=== PATIENT | female | born 1985 | race Caucasian/White ===

== ENCOUNTER 2018-01-29 13:48 | Emergency (ER) | payer OTHER ==
[2018-01-29] MEDS ORDERED: ACETAMINOPHEN TAB 500 MG TAB PO STA (14:52)
[2018-01-29 15:26] LABS: Basophils % (A) 0 %; Eosinophils # (A) 0.2 k/uL (0-0.7); Eosinophils % (A) 3 %; HCT 42.1 % (34.0-46.0); HGB 13.8 gm/dL (11.4-16.0); Lymphocytes # (A) 2.5 k/uL (1.0-4.8); Lymphocytes % (A) 48 %; MCH 29.2 pg (25.0-35.0); MCHC 32.8 g/dL (31.0-37.0); Mean Platelet Volume 6.9; Monocytes # (A) 0.3 k/uL (0-1.0); Monocytes % (A) 6 %; Neutrophils # (A) 2.2 k/uL (1.3-7.7); Neutrophils % (A) 42 %; Platelet Count 255 k/uL (150-450); RBC 4.73 m/uL (3.80-5.40); RDW 13.7 % (11.5-15.5); WBC 5.2 k/uL (3.8-10.6)
[2018-01-29 15:33] LABS: Anion Gap 10 mmol/L; Blood Urea Nitrogen 12 mg/dL (7-17); Calcium 10.1 mg/dL (8.4-10.2); Carbon Dioxide 23 mmol/L (22-30); Chloride 109 mmol/L (98-107); Glucose 86 mg/dL (74-99); Potassium 4.2 mmol/L (3.5-5.1); Sodium 142 mmol/L (137-145)
[2018-01-29 15:36] LABS: Appearance,Urine Cloudy (Clear); Bacteria,Urine Occasional /hpf; Bilirubin,Urine Negative (Negative); Blood,Urine Negative (Negative); Color,Urine Light Yellow; Glucose,Urine (UA) Negative (Negative); Hyaline Casts,Urine 2 /lpf (0-2); Ketones,Urine Negative (Negative); Leukocyte Esterase,Urine Negative (Negative); Nitrite,Urine Negative (Negative); Protein,Urine Negative (Negative); RBC,Urine <1 /hpf (0-5); Specific Gravity,Urine 1.005 (1.001-1.035); Squamous Epithelial Cell,Urine 11 /hpf (0-4); Urobilinogen,Urine <2.0 mg/dL (<2.0); WBC,Urine 2 /hpf (0-5)
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
[2018-01-29 15:47] LABS: Urn Cannabinoid Scrn Detected (NotDetected)
[2018-01-29 15:48] LABS: Amphetamine Screen,Urine Not Detected (NotDetected); Barbiturate Screen,Urine Not Detected (NotDetected); Benzodiazepines Screen,Urine Not Detected (NotDetected); Cocaine Screen,Urine Not Detected (NotDetected); Methadone Screen, Urine Not Detected (NotDetected); Opiate Screen,Urine Not Detected (NotDetected); Oxycodone Screen, Urine Not Detected (NotDetected); Phencyclidine Screen,Urine Not Detected (NotDetected); Tricyclic Antidepressant,Urine Not Detected (NotDetected)
--- NOTE | 2018-01-29 15:48 | US ---
EXAMINATION TYPE: US venous doppler duplex LE LT DATE OF EXAM: 01/29/2018 3:36 PM COMPARISON: NONE CLINICAL HISTORY: Pain. discoloration and mild swelling on anterior left awtts SIDE PERFORMED: Left TECHNIQUE: The lower extremity deep venous system is examined utilizing real time linear array sonog carmelita with graded compression, doppler sonography and color-flow sonography. VESSELS IMAGED: External Iliac Vein (EIV) Common Femoral Vein Deep Femoral Vein Greater Saphenous Vein * Femoral Vein Popliteal Vein Small Saphenous Vein * Proximal Calf Veins (* superficial vessels) Left Leg: Appears negative for DVT, scanned anterior left watts and no obvious abnormality seen. Grayscale, color doppler, spectral doppler imaging performed of the deep veins of the left lower extr emity. There is normal flow, compressibility, vascular waveforms. Towards end of the exam anterior watts shows mild diffuse subcutaneous edema without suspicious focal fluid collection or mass. IMPRESSION: No ultrasound evidence for acute DVT in the left lower extremity.
[2018-01-29] MEDS ORDERED: AZITHROMYCIN 500 MG TAB PO STA (16:21)
[2018-01-29] MEDS ORDERED: metroNIDAZOLE 500 MG TAB PO STA (16:21)
[2018-01-29] MEDS ORDERED: cefTRIAXone 250 MG VIAL IM STA (16:21)
[2018-01-29] MEDS ORDERED: FLUCONAZOLE 150 MG TAB PO STA (16:31)
[2018-01-29 17:18] VITALS: BP 102/56; PULSE 58; RESP 16; TEMP 96.8
== END 2018-01-29 17:17 | disposition home or self-care (01) ==
LOC: EC 13:48
DX: N64.52 Nipple discharge (principal); L30.9 Dermatitis, unspecified; M79.662 Pain in left lower leg; F17.200 Nicotine dependence, unspecified, uncomplicated; Z87.42 Personal history of other diseases of the female genital tract; Z90.710 Acquired absence of both cervix and uterus; Z88.1 Allergy status to other antibiotic agents; Z88.2 Allergy status to sulfonamides
CPT/HCPCS: 36415; 80048; 85025; 81001; 81025; 84146; 80306; 87070; 87205; 93971; 99284; 96372; J0696

== ENCOUNTER 2018-02-14 18:01 | Emergency (ER) | payer OTHER ==
[2018-02-14 20:07] LABS: Basophils # (A) 0.1 k/uL (0-0.2); Basophils % (A) 1 %; Eosinophils # (A) 0.1 k/uL (0-0.7); Eosinophils % (A) 1 %; HCT 41.9 % (34.0-46.0); HGB 13.9 gm/dL (11.4-16.0); Lymphocytes # (A) 2.6 k/uL (1.0-4.8); Lymphocytes % (A) 31 %; MCH 29.4 pg (25.0-35.0); MCHC 33.1 g/dL (31.0-37.0); MCV 88.6 fL (80.0-100.0); Mean Platelet Volume 7.1; Monocytes # (A) 0.3 k/uL (0-1.0); Monocytes % (A) 4 %; Neutrophils # (A) 5.3 k/uL (1.3-7.7); Neutrophils % (A) 63 %; Platelet Count 239 k/uL (150-450); RBC 4.72 m/uL (3.80-5.40); RDW 13.2 % (11.5-15.5); WBC 8.4 k/uL (3.8-10.6)
[2018-02-14 20:18] LABS: Anion Gap 9 mmol/L; Blood Urea Nitrogen 18 mg/dL (7-17); Calcium 10.1 mg/dL (8.4-10.2); Carbon Dioxide 28 mmol/L (22-30); Chloride 105 mmol/L (98-107); Glucose 115 mg/dL (74-99); Magnesium 2.1 mg/dL (1.6-2.3); Potassium 3.9 mmol/L (3.5-5.1); Sodium 142 mmol/L (137-145)
[2018-02-14 20:53] LABS: Appearance,Urine Clear (Clear); Bilirubin,Urine Negative (Negative); Blood,Urine Negative (Negative); Color,Urine Light Yellow; Glucose,Urine (UA) Negative (Negative); Ketones,Urine Negative (Negative); Leukocyte Esterase,Urine Negative (Negative); Nitrite,Urine Negative (Negative); PH, Urine 6.5 (5.0-8.0); Protein,Urine Negative (Negative); Specific Gravity,Urine 1.008 (1.001-1.035); Urobilinogen,Urine <2.0 mg/dL (<2.0)
[2018-02-14 21:19] VITALS: RESP 18
--- NOTE | 2018-02-14 21:46 | ED ---
General Adult HPI - General Chief complaint: Weakness Stated complaint: weakness Source: patient Mode of arrival: wheelchair Limitations: no limitations - History of Present Illness Initial comments: Dictation was produced using [employer] dictation software. please excuse any grammatical, word or spelling errors. Chief Complaint: 31-year-old female past medical history of seizure disorder neuropathy presents with total body pain. History of Present Illness: Patient is a 31-year-old female presents with total body pain. Patient states she has past medical history of seizure and neuropathy. Patient states she takes 100 mg of gabapentin 3 times a day and 100 mg of Lamictal once a day. Patient states she just moved from [place] 2 weeks ago. She states she has not had a chance to refill her medications. Patient denies any constitutional symptoms. The ROS documented in this emergency department record has been reviewed and confirmed by me. Those systems with pertinent positive or negative responses have been documented in the HPI. All other systems are other negative and/or noncontributory. - Related Data Previous Rx's Medication Instructions Recorded Gabapentin 800 mg PO TID #12 tab 02/14/18 lamoTRIgine [LaMICtal] 100 mg PO BID #10 tab 02/14/18 Allergies Allergy/AdvReac Type Severity Reaction Status Date / Time aspirin Allergy Rash/Hives Verified 02/14/18 19:24 ibuprofen [From Motrin IB] Allergy Rash/Hives Verified 02/14/18 19:24 ketorolac [From Toradol] Allergy Rash/Hives Verified 02/14/18 19:24 sulfamethoxazole Allergy Rash/Hives Verified 02/14/18 19:23 [From Bactrim] trimethoprim [From Bactrim] Allergy Rash/Hives Verified 02/14/18 19:23 Review of Systems ROS Statement: Those systems with pertinent positive or pertinent negative responses have been documented in the HPI. ROS Other: All systems not noted in ROS Statement are negative. Past Medical History Past Medical History: Seizure Disorder Additional Past Medical History / Comment(s): endometriosis chronic kidney infections History of Any Multi-Drug Resistant Organisms: None Reported Past Surgical History: Hysterectomy Past Psychological History: No Psychological Hx Reported Smoking Status: Current every day smoker Past Alcohol Use History: Occasional Past Drug Use History: Marijuana General Exam - General Exam Comments Initial Comments: PHYSICAL EXAM: General Impression: Alert and oriented x3, not in acute distress HEENT: Normocephalic atraumatic, extra-ocular movements intact, pupils equal and reactive to light bilaterally, mucous membranes moist. Cardiovascular: Heart regular rate and rhythm, S1&S2 audible, no murmurs, rubs or gallops Chest: Lungs clear to auscultation bilaterally, no rhonchi, no wheeze, no rales Abdomen: Bowel sounds present, abdomen soft, non-tender, non-distended, no organomegaly Musculoskeletal: Pulses present and equal in all extremities, no peripheral edema Motor: Power 5/5 bilaterally, no focal deficits noted Neurological: CN II-XII grossly intact, no focal motor or sensory deficits noted Skin: Intact with no visualized rashes Psych: Normal affect and mood Limitations: no limitations Course Vital Signs 02/14/18 02/14/18 18:33 21:18 Temperature 98.4 F 98.1 F Pulse Rate 84 67 Respiratory 16 18 Rate Blood Pressure 100/68 110/84 O2 Sat by Pulse 99 99 Oximetry Medical Decision Making - Medical Decision Making ED course: 32 Old female presents with whole body pain. Vital signs upon arrival are within acceptable limits. Patient's history of present illness is not suspicious for any life-threatening emergencies. Hemodynamically stable on arrival. Patient is well-appearing. Laboratory evaluation obtained showing no acute processes. Patient is not . Patient's dictations refilled. She is given referral to primary care physician and neurologist. - Lab Data Result diagrams: 02/14/18 19:40 02/14/18 19:40 Lab Results 02/14/18 02/14/18 02/14/18 Range/Units 19:40 19:40 20:37 WBC 8.4 (3.8-10.6) k/uL RBC 4.72 (3.80-5.40) m/uL Hgb 13.9 (11.4-16.0) gm/dL Hct 41.9 (34.0-46.0) % MCV 88.6 (80.0-100.0) fL MCH 29.4 (25.0-35.0) pg MCHC 33.1 (31.0-37.0) g/dL RDW 13.2 (11.5-15.5) % Plt Count 239 (150-450) k/uL Neutrophils % 63 % Lymphocytes % 31 % Monocytes % 4 % Eosinophils % 1 % Basophils % 1 % Neutrophils # 5.3 (1.3-7.7) k/uL Lymphocytes # 2.6 (1.0-4.8) k/uL Monocytes # 0.3 (0-1.0) k/uL Eosinophils # 0.1 (0-0.7) k/uL Basophils # 0.1 (0-0.2) k/uL Sodium 142 (137-145) mmol/L Potassium 3.9 (3.5-5.1) mmol/L Chloride 105 (98-107) mmol/L Carbon Dioxide 28 (22-30) mmol/L Anion Gap 9 mmol/L BUN 18 H (7-17) mg/dL Creatinine 0.73 (0.52-1.04) mg/dL Est GFR (CKD-EPI)AfAm >90 (>60 ml/min/1.73 sqM) Est GFR (CKD-EPI)NonAf >90 (>60 ml/min/1.73 sqM) Glucose 115 H (74-99) mg/dL Calcium 10.1 (8.4-10.2) mg/dL Magnesium 2.1 (1.6-2.3) mg/dL Urine Color Urine Appearance (Clear) Urine pH (5.0-8.0) Ur Specific [place] (1.001-1.035) Urine Protein (Negative) Urine Glucose (UA) (Negative) Urine Ketones (Negative) Urine Blood (Negative) Urine Nitrite (Negative) Urine Bilirubin (Negative) Urine Urobilinogen (<2.0) mg/dL Ur Leukocyte Esterase (Negative) Urine HCG, Qual Not Detected (Not Detectd) 02/14/18 Range/Units 20:37 WBC (3.8-10.6) k/uL RBC (3.80-5.40) m/uL Hgb (11.4-16.0) gm/dL Hct (34.0-46.0) % MCV (80.0-100.0) fL MCH (25.0-35.0) pg MCHC (31.0-37.0) g/dL RDW (11.5-15.5) % Plt Count (150-450) k/uL Neutrophils % % Lymphocytes % % Monocytes % % Eosinophils % % Basophils % % Neutrophils # (1.3-7.7) k/uL Lymphocytes # (1.0-4.8) k/uL Monocytes # (0-1.0) k/uL Eosinophils # (0-0.7) k/uL Basophils # (0-0.2) k/uL Sodium (137-145) mmol/L Potassium (3.5-5.1) mmol/L Chloride (98-107) mmol/L Carbon Dioxide (22-30) mmol/L Anion Gap mmol/L BUN (7-17) mg/dL Creatinine (0.52-1.04) mg/dL Est GFR (CKD-EPI)AfAm (>60 ml/min/1.73 sqM) Est GFR (CKD-EPI)NonAf (>60 ml/min/1.73 sqM) Glucose (74-99) mg/dL Calcium (8.4-10.2) mg/dL Magnesium (1.6-2.3) mg/dL Urine Color Light Yellow Urine Appearance Clear (Clear) Urine pH 6.5 (5.0-8.0) Ur Specific [place] 1.008 (1.001-1.035) Urine Protein Negative (Negative) Urine Glucose (UA) Negative (Negative) Urine Ketones Negative (Negative) Urine Blood Negative (Negative) Urine Nitrite Negative (Negative) Urine Bilirubin Negative (Negative) Urine Urobilinogen <2.0 (<2.0) mg/dL Ur Leukocyte Esterase Negative (Negative) Urine HCG, Qual (Not Detectd) Disposition Clinical Impression: Inadequate pain control Disposition: HOME SELF-CARE Condition: Good Prescriptions: Gabapentin 800 mg PO TID #12 tab lamoTRIgine [LaMICtal] 100 mg PO BID #10 tab Is patient prescribed a controlled substance at d/c from ED?: No Referrals: None,Stated [Primary Care Provider] - 1-2 days Nitza Sanchez MD [REFERRING] - 1-2 days Angela Nguyen MD [STAFF PHYSICIAN] - 1-2 days Time of Disposition: 21:45
[2018-02-14 22:14] VITALS: BP 102/64; PULSE 64; TEMP 97.5
== END 2018-02-14 22:14 | disposition home or self-care (01) ==
LOC: EC 18:01
DX: R53.1 Weakness (principal); R52 Pain, unspecified; G62.9 Polyneuropathy, unspecified; F17.200 Nicotine dependence, unspecified, uncomplicated; Z88.6 Allergy status to analgesic agent; Z88.2 Allergy status to sulfonamides
CPT/HCPCS: 36415; 80048; 81003; 81025; 83735; 85025; 99285

== ENCOUNTER 2018-04-15 10:51 | Emergency (ER) | payer OTHER ==
[2018-04-15 11:07] VITALS: TEMP 97.4
[2018-04-15] MEDS ORDERED: IPRATROPIUM-ALBUTEROL 3 ML NEB INHALATION STA (11:22)
--- NOTE | 2018-04-15 11:31 | ED ---
General Adult HPI - General Chief complaint: Upper Respiratory Infection Stated complaint: Congestion Time Seen by Provider: 04/15/18 11:14 Source: patient, RN notes reviewed Mode of arrival: ambulatory Limitations: no limitations - History of Present Illness Initial comments: Patient is a pleasant 32-year-old female presenting to the emergency department complaints of cough and upper a story symptoms. Symptoms have been occurring over the past 2-3 days. Patient has sinus congestion. Patient does have cough with yellow sputum. Patient does have mild sore throat. Patient does have some suprapubic fullness. Patient states this is chronic and has been present for greater than 1 year. Patient does have some urinary urgency and mild dysuria which she has had previously with urinary tract infections. - Related Data Previous Rx's Medication Instructions Recorded Gabapentin 800 mg PO TID #12 tab 02/14/18 lamoTRIgine [LaMICtal] 100 mg PO BID #10 tab 02/14/18 Albuterol Inhaler [Ventolin Hfa 2 puff INHALATION Q4HR PRN #1 04/15/18 Inhaler] inhaler Azithromycin [Zithromax Z-pack] 250 mg PO DIRECTED #6 tab 04/15/18 Allergies Allergy/AdvReac Type Severity Reaction Status Date / Time aspirin Allergy Rash/Hives Verified 04/15/18 11:07 ibuprofen [From Motrin IB] Allergy Rash/Hives Verified 04/15/18 11:07 ketorolac [From Toradol] Allergy Rash/Hives Verified 04/15/18 11:07 sulfamethoxazole Allergy Rash/Hives Verified 04/15/18 11:07 [From Bactrim] trimethoprim [From Bactrim] Allergy Rash/Hives Verified 04/15/18 11:07 Review of Systems ROS Statement: Those systems with pertinent positive or pertinent negative responses have been documented in the HPI. ROS Other: All systems not noted in ROS Statement are negative. Constitutional: Denies: fever Eyes: Denies: eye pain ENT: Reports: throat pain, congestion. Denies: ear pain Respiratory: Reports: cough. Denies: dyspnea Cardiovascular: Denies: chest pain Endocrine: Denies: fatigue Gastrointestinal: Reports: as per HPI Genitourinary: Reports: urgency, dysuria Musculoskeletal: Denies: back pain Skin: Denies: rash Neurological: Denies: weakness Past Medical History Past Medical History: Seizure Disorder Additional Past Medical History / Comment(s): endometriosis chronic kidney infections History of Any Multi-Drug Resistant Organisms: None Reported Past Surgical History: Hysterectomy Past Psychological History: No Psychological Hx Reported Smoking Status: Current every day smoker Past Alcohol Use History: Occasional Past Drug Use History: Marijuana General Exam Limitations: no limitations General appearance: alert, in no apparent distress Head exam: Present: atraumatic Eye exam: Present: normal appearance, PERRL ENT exam: Present: other (Mild pharyngeal erythema) Neck exam: Present: normal inspection. Absent: tenderness, meningismus Respiratory exam: Present: wheezes (Minimal wheezing) Cardiovascular Exam: Present: regular rate, normal rhythm GI/Abdominal exam: Present: soft. Absent: tenderness Extremities exam: Present: normal inspection. Absent: pedal edema, calf tenderness Back exam: Present: normal inspection Neurological exam: Present: alert Psychiatric exam: Present: normal affect, normal mood Skin exam: Present: normal color Course Vital Signs 04/15/18 04/15/18 04/15/18 11:05 12:01 12:12 Temperature 97.4 F L Pulse Rate 79 80 80 Respiratory 20 Rate Blood Pressure 109/66 O2 Sat by Pulse 99 Oximetry Medical Decision Making - Medical Decision Making Patient reevaluated and resting comfortably in bed. Patient does feel much better following nebulizer. Patient updated on results and plan. Patient requests antibiotics for sinuses. - Lab Data Lab Results 04/15/18 04/15/18 04/15/18 Range/Units 11:43 11:45 11:45 Urine Color Yellow Urine Appearance Clear (Clear) Urine pH 6.0 (5.0-8.0) Ur Specific [place] 1.016 (1.001-1.035) Urine Protein Trace H (Negative) Urine Glucose (UA) Negative (Negative) Urine Ketones Negative (Negative) Urine Blood Negative (Negative) Urine Nitrite Negative (Negative) Urine Bilirubin Negative (Negative) Urine Urobilinogen <2.0 (<2.0) mg/dL Ur Leukocyte Esterase Negative (Negative) Influenza Type A RNA Not Detected (Not Detectd) Influenza Type B (PCR) Not Detected (Not Detectd) Group A Strep Rapid Negative (Negative) - Radiology Data Radiology results: report reviewed (Ultrasound shows no acute abnormality. Bowel noted extensively bilateral adnexal region. Status post hysterectomy), image reviewed (Chest x-ray shows some peribronchial cuffing, otherwise no acute abnormality. Abdominal x-ray shows no acute abnormality. ) Disposition Clinical Impression: Sinusitis, Bronchitis Disposition: HOME SELF-CARE Condition: Stable Instructions: Sinusitis (ED), Acute Bronchitis (ED) Additional Instructions: Please follow-up with primary care physician in the next day or 2 for recheck. Return for difficulty breathing, uncontrolled fever, increased abdominal pain, worsening or changing symptoms or other concerns. Prescriptions: Albuterol Inhaler [Ventolin Hfa Inhaler] 2 puff INHALATION Q4HR PRN #1 inhaler PRN Reason: Dyspnea Azithromycin [Zithromax Z-pack] 250 mg PO DIRECTED #6 tab Is patient prescribed a controlled substance at d/c from ED?: No Referrals: Zo Farah MD [STAFF PHYSICIAN] - 1-2 days Time of Disposition: 14:06
[2018-04-15 12:34] LABS: Appearance,Urine Clear (Clear); Bilirubin,Urine Negative (Negative); Blood,Urine Negative (Negative); Color,Urine Yellow; Glucose,Urine (UA) Negative (Negative); Ketones,Urine Negative (Negative); Leukocyte Esterase,Urine Negative (Negative); Nitrite,Urine Negative (Negative); Protein,Urine Trace (Negative); Specific Gravity,Urine 1.016 (1.001-1.035); Urobilinogen,Urine <2.0 mg/dL (<2.0)
--- NOTE | 2018-04-15 13:11 | US ---
EXAMINATION TYPE: US pelvic limited DATE OF EXAM: 04/15/2018 COMPARISON: NONE CLINICAL HISTORY: 32-year-old female Pain. Patient states she feels pressure and something pressing i n her pelvis. TECHNIQUE: Transabdominal (TA). Date of LMP: hysterectomy 4 years ago FINDINGS: Uterus and ovaries are surgically absent. [employer] Supervisor notes: Bilateral Adnexa: Extensive bowel noted bilaterally Posterior cul-de-sac: wnl IMPRESSION: Status post hysterectomy and bilateral salpingo-oophorectomy. Extensive bowel noted in the bilateral adnexa by the restaurant front manager. No pelvic free fluid.
--- NOTE | 2018-04-15 13:44 | XR ---
EXAMINATION TYPE: XR KUB DATE OF EXAM: 04/15/2018 CLINICAL DATA: 32-year-old female with pain, [facility] COMPARISON: None FINDINGS: Lung bases are clear. No evidence for free intraperitoneal air. No dilated small bowel or air-fluid levels. Scattered air and stool seen throughout the colon extendi ng distally into the rectum. Mild overall stool burden. No suspicious calcifications identified. IMPRESSION: Mild overall stool burden. No evidence of bowel obstruction or free intraperitoneal air.
--- NOTE | 2018-04-15 13:45 | XR ---
EXAMINATION TYPE: XR chest 2V DATE OF EXAM: 04/15/2018 COMPARISON: None HISTORY: 32-year-old female with cough TECHNIQUE: PA and lateral views FINDINGS: The cardiomediastinal silhouette, aorta, and pulmonary vasculature are within normal limits. Minimal central peribronchial cuffing. Otherwise, lungs and pleural spaces are clear. IMPRESSION: Very minimal central peribronchial cuffing could reflect bronchitis or asthma. Otherwise, no acute ca rdiopulmonary process.
[2018-04-15 14:47] VITALS: BP 95/57; PULSE 73; RESP 18
== END 2018-04-15 14:47 | disposition home or self-care (01) ==
LOC: EC 10:51
DX: J40 Bronchitis, not specified as acute or chronic (principal); J32.9 Chronic sinusitis, unspecified; F17.200 Nicotine dependence, unspecified, uncomplicated; Z88.6 Allergy status to analgesic agent; Z88.2 Allergy status to sulfonamides
CPT/HCPCS: 71046; 74018; 76857; 81003; 87081; 87086; 87430; 87502; 94640; 99284